=== PATIENT | male | born 1950 | race Caucasian/White ===

== ENCOUNTER 2022-03-24 16:55 | Emergency (ER) | payer OTHER ==
[~2022-03-24] VITALS: Ht 170.2 cm; Wt 82.1 kg
[2022-03-24 18:19] LABS: BASOPHILS % (AUTO) 0.2 % (0.0-5.0); HEMATOCRIT 42.5 % (42-54); LYMPHOCYTES % (AUTO) 10.4 % (21.0-51.0); MEAN CORPUSCULAR HEMOGLOBIN 30.5 pg (27.0-33.0); MEAN CORPUSCULAR HGB CONC 34.1 g/dL (32.0-36.0); MEAN CORPUSCULAR VOLUME 89.3 fL (79-99); MONOCYTES % (AUTO) 11.1 % (3.0-13.0); NEUTROPHILS % (AUTO) 73.7 % (40.0-77.0); PLATELET COUNT (AUTO) 170 K/uL (130-400); RED BLOOD CELL COUNT(AUTO) 4.76 MIL/uL (4.50-6.20); RED CELL DISTRIBUTION WIDTH 12.5 % (11.0-15.5); WHITE BLOOD COUNT (AUTO) 8.2 K/uL (4.8-10.8)
[2022-03-24 18:30] LABS: CREATININE 1.7 mg/dL (0.5-1.5); POTASSIUM 5.5 mmol/L (3.5-5.1)
[2022-03-24] MEDS ORDERED: MORPHINE 2 MG SYG IVP ONE (18:30)
[2022-03-24] MEDS ORDERED: ONDANSETRON 4MG INJ IVP ONE (18:30)
[2022-03-24] MEDS ORDERED: 0.9% NACL 250ML 250 ML IV ONE (18:30)
[2022-03-24 18:31] LABS: INR 0.93 (0.85-1.15); PROTHROMBIN TIME 10.1 SEC (9.6-11.6)
[2022-03-24 18:32] LABS: PARTIAL THROMBOPLASTIN TIME 26.5 SEC (26.3-35.5)
[2022-03-24 18:35] LABS: ALBUMIN 3.9 g/dL (3.5-5.0); TOTAL PROTEIN, SERUM 7.4 g/dL (6.0-8.3)
[2022-03-24] MEDS ORDERED: APIX5TAB PO (19:49)
[2022-03-24 20:07] VITALS: BP 162/82
== END 2022-03-24 20:16 | disposition home or self-care (01) ==
LOC: EDH 16:55
DX: I82.401 Acute embolism and thrombosis of unspecified deep veins of right lower extremity (principal); I25.10 Atherosclerotic heart disease of native coronary artery without angina pectoris; I12.9 Hypertensive chronic kidney disease with stage 1 through stage 4 chronic kidney disease, or unspecified chronic kidney disease; E11.22 Type 2 diabetes mellitus with diabetic chronic kidney disease; N18.9 Chronic kidney disease, unspecified; E78.5 Hyperlipidemia, unspecified; J44.9 Chronic obstructive pulmonary disease, unspecified; Z91.041 Radiographic dye allergy status; Z98.890 Other specified postprocedural states; Z79.01 Long term (current) use of anticoagulants; Z95.810 Presence of automatic (implantable) cardiac defibrillator
CPT/HCPCS: 99284; 96374; 93971; 96375; 80053; 85025; 85610; 85730; 36415; J2405; J7050; 96361

== ENCOUNTER 2022-03-28 14:43 | Emergency (ER) | payer OTHER ==
[~2022-03-28] VITALS: Ht 170.2 cm; Wt 81.6 kg
[~2022-03-28 14:43] MED LIST: APIX5TAB PO
[2022-03-28 14:48] VITALS: BP 189/130
[2022-03-28 16:08] LABS: BASOPHILS % (AUTO) 0.3 % (0.0-5.0); EOSINOPHILS % (AUTO) 3.9 % (0.0-8.0); HEMATOCRIT 37.7 % (42-54); LYMPHOCYTES % (AUTO) 12.9 % (21.0-51.0); MEAN CORPUSCULAR HEMOGLOBIN 31.3 pg (27.0-33.0); MEAN CORPUSCULAR HGB CONC 35.3 g/dL (32.0-36.0); MEAN CORPUSCULAR VOLUME 88.7 fL (79-99); MONOCYTES % (AUTO) 11.4 % (3.0-13.0); NEUTROPHILS % (AUTO) 70.9 % (40.0-77.0); PLATELET COUNT (AUTO) 174 K/uL (130-400); RED BLOOD CELL COUNT(AUTO) 4.25 MIL/uL (4.50-6.20); RED CELL DISTRIBUTION WIDTH 12.6 % (11.0-15.5)
[2022-03-28 16:19] LABS: CREATININE 1.6 mg/dL (0.5-1.5); POTASSIUM 4.9 mmol/L (3.5-5.1)
[2022-03-28 16:31] LABS: ALBUMIN 3.4 g/dL (3.5-5.0); TOTAL PROTEIN, SERUM 6.5 g/dL (6.0-8.3)
== END 2022-03-28 18:36 | disposition home or self-care (01) ==
LOC: EDH 14:43
DX: I82.401 Acute embolism and thrombosis of unspecified deep veins of right lower extremity (principal); I10 Essential (primary) hypertension; E78.00 Pure hypercholesterolemia, unspecified; E11.9 Type 2 diabetes mellitus without complications; Z88.8 Allergy status to other drugs, medicaments and biological substances
CPT/HCPCS: 36415; 71045; 80053; 84484; 85025; 93005; 93971

== ENCOUNTER 2022-06-15 19:15 | Inpatient (IN) | payer OTHER ==
[~2022-06-15] VITALS: Ht 170.2 cm; Wt 82.8 kg
[~2022-06-15 19:15] MED LIST changes: +ALBUHFA IH; +AZIT500T2 PO; +PRED20TA3 PO
[2022-06-15 20:54] LABS: BASOPHILS % (AUTO) 0.1 % (0.0-5.0); EOSINOPHILS % (AUTO) 1.3 % (0.0-8.0); HEMATOCRIT 38.5 % (42-54); MEAN CORPUSCULAR HEMOGLOBIN 30.6 pg (27.0-33.0); MONOCYTES % (AUTO) 10.4 % (3.0-13.0); NEUTROPHILS % (AUTO) 75.8 % (40.0-77.0); PLATELET COUNT (AUTO) 155 K/uL (130-400); RED BLOOD CELL COUNT(AUTO) 4.28 MIL/uL (4.50-6.20); RED CELL DISTRIBUTION WIDTH 12.7 % (11.0-15.5); WHITE BLOOD COUNT (AUTO) 7.2 K/uL (4.8-10.8)
[2022-06-15 21:02] LABS: APPEARANCE,URINE CLEAR (CLEAR); BILIRUBIN,URINE NEGATIVE (NEGATIVE); COLOR,URINE YELLOW (YELLOW); GLUCOSE, URINE (UA) NEGATIVE (NEGATIVE); KETONES,URINE NEGATIVE (NEGATIVE); LEUKOCYTE ESTERASE ,URINE NEGATIVE Leu/uL (NEGATIVE); NITRATE,URINE NEGATIVE (NEGATIVE); OCCULT BLOOD,URINE NEGATIVE (NEGATIVE); PROTEIN,URINE 10 mg/dL (NEGATIVE); UROBILINOGEN,URINE 0.2 mg/dL (0.2-1.0)
[2022-06-15 21:07] LABS: MUCUS,URINE RARE LPF (None Seen); WBC,URINE 0-1 /HPF (0-1)
[2022-06-15 21:07] LABS: CREATININE 2.1 mg/dL (0.5-1.5); POTASSIUM 4.6 mmol/L (3.5-5.1)
[2022-06-15 21:15] LABS: ALBUMIN 3.5 g/dL (3.5-5.0); TOTAL PROTEIN, SERUM 6.5 g/dL (6.0-8.3)
[2022-06-15] MEDS ORDERED: ONDANSETRON 4MG INJ IVP ONE (23:00)
[2022-06-15] MEDS ORDERED: HYDROMORPHONE 1 MG INJ IVP ONE (23:00)
[2022-06-16 04:28] VITALS: BP 177/94
[2022-06-16] MEDS ORDERED: MORPHINE 2 MG SYG IV PRN ×2 (07:00)
[2022-06-16] MEDS ORDERED: ACETAMINOPHEN 325 MG TAB PO PRN ×4 (07:00)
[2022-06-16] MEDS ORDERED: ONDANSETRON 4MG INJ IV PRN ×2 (07:00)
[2022-06-16] MEDS: 0.9%NACL 1000ML 1,000 ML IV SCH (07:00)
[2022-06-16] MEDS ORDERED: HYDROCODONE/ACETAMINOPHEN 5/325 MG TAB PO PRN ×2 (07:00)
[2022-06-16 07:12] LABS: BASOPHILS % (AUTO) 0.2 % (0.0-5.0); EOSINOPHILS % (AUTO) 1.8 % (0.0-8.0); HEMATOCRIT 38.3 % (42-54); LYMPHOCYTES % (AUTO) 12.1 % (21.0-51.0); MEAN CORPUSCULAR HEMOGLOBIN 30.2 pg (27.0-33.0); MEAN CORPUSCULAR HGB CONC 32.9 g/dL (32.0-36.0); MEAN CORPUSCULAR VOLUME 91.8 fL (79-99); MONOCYTES % (AUTO) 11.6 % (3.0-13.0); NEUTROPHILS % (AUTO) 73.8 % (40.0-77.0); PLATELET COUNT (AUTO) 140 K/uL (130-400); RED BLOOD CELL COUNT(AUTO) 4.17 MIL/uL (4.50-6.20); RED CELL DISTRIBUTION WIDTH 12.6 % (11.0-15.5); WHITE BLOOD COUNT (AUTO) 6.3 K/uL (4.8-10.8)
[2022-06-16 07:22] LABS: INR 0.98 (0.85-1.15); PROTHROMBIN TIME 10.7 SEC (9.6-11.6)
[2022-06-16 07:23] LABS: PARTIAL THROMBOPLASTIN TIME 28.6 SEC (26.3-35.5)
[2022-06-16 07:29] LABS: HEMOGLOBIN A1C 7.2 % (4.0-6.0)
[2022-06-16 07:47] LABS: ALBUMIN 3.1 g/dL (3.5-5.0); CREATININE 1.8 mg/dL (0.5-1.5); POTASSIUM 4.9 mmol/L (3.5-5.1)
[2022-06-16] MEDS ORDERED: MYCO500V2 IV (07:57)
[2022-06-16] MEDS ORDERED: TACR1CAP10 PO (07:58)
[2022-06-16 08:00] VITALS: BP 128/85
[2022-06-16] MEDS ORDERED: ACYC400T20 PO (08:00)
[2022-06-16] MEDS ORDERED: MAGN400T40 PO (08:02)
[2022-06-16 08:21] LABS: ERYTHROCYTE SEDIMENTATION RATE 13 MM/HR (0-20)
[2022-06-16] MEDS: FAMOTIDINE 20MG VIAL IV SCH (08:37)
[2022-06-16] MEDS ORDERED: CARV25TA PO (08:41)
[2022-06-16] MEDS ORDERED: TAMS-1 PO (08:41)
[2022-06-16] MEDS ORDERED: OMEP40CA21 PO (08:41)
[2022-06-16] MEDS ORDERED: CALC200T42 PO (08:41)
[2022-06-16] MEDS ORDERED: CHOL-34 PO (08:41)
[2022-06-16] MEDS ORDERED: ASPI-1005 PO (08:41)
[2022-06-16] MEDS ORDERED: ATOR40TA69 PO (08:43)
[2022-06-16] MEDS ORDERED: SILD20TA14 PO (08:47)
[2022-06-16] MEDS ORDERED: FAMOTIDINE 20MG VIAL IV SCH (09:00)
[2022-06-16 11:23] VITALS: BP 141/90
[2022-06-16] MEDS: INSULIN HUMULIN R 100 UNIT/ML 3ML SQ SCH ×3 (12:00→23:39)
[2022-06-16 15:26] VITALS: BP 155/91
[2022-06-16] MEDS: HYDROMORPHONE 1 MG INJ IV PRN (19:03)
[2022-06-16 20:02] VITALS: BP 166/97
[2022-06-16 23:40] VITALS: BP 146/91
[2022-06-17] MEDS: 0.9%NACL 1000ML 1,000 ML IV SCH ×2 (02:53→23:00)
[2022-06-17 04:16] VITALS: BP 149/98
[2022-06-17] MEDS: INSULIN HUMULIN R 100 UNIT/ML 3ML SQ SCH ×3 (05:29→18:08)
[2022-06-17 06:18] LABS: BASOPHILS % (AUTO) 0.2 % (0.0-5.0); EOSINOPHILS % (AUTO) 1.6 % (0.0-8.0); HEMATOCRIT 39.1 % (42-54); LYMPHOCYTES % (AUTO) 8.9 % (21.0-51.0); MEAN CORPUSCULAR HEMOGLOBIN 30.4 pg (27.0-33.0); MONOCYTES % (AUTO) 10.8 % (3.0-13.0); PLATELET COUNT (AUTO) 141 K/uL (130-400); RED BLOOD CELL COUNT(AUTO) 4.25 MIL/uL (4.50-6.20); RED CELL DISTRIBUTION WIDTH 12.6 % (11.0-15.5); WHITE BLOOD COUNT (AUTO) 8.2 K/uL (4.8-10.8)
[2022-06-17 06:44] LABS: ALBUMIN 3.1 g/dL (3.5-5.0); CREATININE 1.5 mg/dL (0.5-1.5); POTASSIUM 4.4 mmol/L (3.5-5.1)
[2022-06-17] MEDS: HYDROMORPHONE 1 MG INJ IV PRN ×3 (06:53→20:59)
[2022-06-17 07:53] VITALS: BP 158/89
[2022-06-17] MEDS: ATORVASTATIN 40 MG TABLET PO SCH (09:00)
[2022-06-17] MEDS: TAMSULOSIN HCL 0.4 MG CAP.ER.24H PO SCH (09:00)
[2022-06-17] MEDS: MAGNESIUM OXIDE 400 MG TABLET PO SCH ×2 (09:00→21:00)
[2022-06-17] MEDS: CALCIUM CITRATE 200 MG PO SCH ×2 (09:00→21:00)
[2022-06-17] MEDS: CHOLECALCIFEROL 25 MCG PO SCH (09:00)
[2022-06-17] MEDS: ACYCLOVIR 200 MG CAPSULE PO SCH ×2 (09:00→21:00)
[2022-06-17] MEDS: MYCOPHENOLATE MOFETIL 250 MG CAPSULE PO SCH ×2 (09:08→20:57)
[2022-06-17] MEDS: FAMOTIDINE 20MG VIAL IV SCH (09:08)
[2022-06-17] MEDS: TACROLIMUS 1 MG CAPSULE PO SCH ×2 (09:08→20:57)
[2022-06-17] MEDS: CARVEDILOL 25 MG TABLET PO SCH ×2 (09:09→20:56)
[2022-06-17] MEDS ORDERED: LACTULOSE 20 GM/30 ML UDCUP PO ONE (11:00)
[2022-06-17] MEDS: ZOSYN 3.375GM +NS 50ML IVPB SCH ×2 (11:58→18:09)
[2022-06-17 12:00] VITALS: BP 154/95
[2022-06-17 15:57] VITALS: BP 127/78
[2022-06-17 19:00] VITALS: BP 163/93
[2022-06-18] VITALS (22 sets, daily range): BP systolic 127–166; BP diastolic 70–97
[2022-06-18] MEDS: HYDROMORPHONE 1 MG INJ IV PRN ×4 (01:26→20:33)
[2022-06-18] MEDS: ZOSYN 3.375GM +NS 50ML IVPB SCH ×3 (03:19→17:51)
[2022-06-18] MEDS: INSULIN HUMULIN R 100 UNIT/ML 3ML SQ SCH ×4 (06:00→17:41)
[2022-06-18 06:29] LABS: HEMATOCRIT 41.6 % (42-54); MEAN CORPUSCULAR HEMOGLOBIN 30.6 pg (27.0-33.0); MEAN CORPUSCULAR HGB CONC 33.7 g/dL (32.0-36.0); MEAN CORPUSCULAR VOLUME 90.8 fL (79-99); RED BLOOD CELL COUNT(AUTO) 4.58 MIL/uL (4.50-6.20); RED CELL DISTRIBUTION WIDTH 12.4 % (11.0-15.5); WHITE BLOOD COUNT (AUTO) 7.4 K/uL (4.8-10.8)
[2022-06-18 06:41] LABS: ALBUMIN 3.4 g/dL (3.5-5.0); CREATININE 1.6 mg/dL (0.5-1.5); POTASSIUM 3.7 mmol/L (3.5-5.1); TOTAL PROTEIN, SERUM 6.9 g/dL (6.0-8.3)
[2022-06-18] MEDS: CARVEDILOL 25 MG TABLET PO SCH ×2 (08:20→20:31)
[2022-06-18] MEDS: TACROLIMUS 1 MG CAPSULE PO SCH ×2 (08:20→20:30)
[2022-06-18] MEDS: ACYCLOVIR 200 MG CAPSULE PO SCH ×2 (08:20→20:30)
[2022-06-18] MEDS: MYCOPHENOLATE MOFETIL 250 MG CAPSULE PO SCH ×2 (08:20→20:30)
[2022-06-18] MEDS: CALCIUM CITRATE 200 MG PO SCH ×2 (09:00→20:40)
[2022-06-18] MEDS: TAMSULOSIN HCL 0.4 MG CAP.ER.24H PO SCH (09:00)
[2022-06-18] MEDS: CHOLECALCIFEROL 25 MCG PO SCH (09:00)
[2022-06-18] MEDS: ATORVASTATIN 40 MG TABLET PO SCH (09:00)
[2022-06-18] MEDS: MAGNESIUM OXIDE 400 MG TABLET PO SCH ×2 (09:00→20:30)
[2022-06-18] MEDS: FAMOTIDINE 20MG VIAL IV SCH (09:00)
[2022-06-18] MEDS ORDERED: PROPOFOL 10 MG/ML 20ML VIAL IV ONE (09:29)
[2022-06-18] MEDS ORDERED: LIDOCAINE PF 100MG/5ML (2%) SYRINGE 5ML ONE (09:29)
[2022-06-18] MEDS ORDERED: DEXAMETHASONE SOD PHOSPHATE 4 MG/ML 1ML VIAL ONE (09:29)
[2022-06-18] MEDS ORDERED: NEOSTIGMINE 5MG/5ML SYR IV ONE (09:30)
[2022-06-18] MEDS ORDERED: ROCURONIUM 10MG/1ML SYR 10 MG/ML ML ONE ×2 (09:30→10:48)
[2022-06-18] MEDS ORDERED: GLYCOPYRROLATE 1 MG/5 ML SYRINGE ONE (09:30)
[2022-06-18] MEDS ORDERED: ONDANSETRON 4MG INJ ONE (09:30)
[2022-06-18] MEDS ORDERED: MIDAZOLAM HCL 1 MG/ML 2ML VIAL ONE (09:30)
[2022-06-18] MEDS ORDERED: FENTANYL CITRATE PF 50 MCG/1 ML 2ML VIAL ONE ×2 (09:31→10:48)
[2022-06-18] MEDS ORDERED: CEFAZOLIN SODIUM 1 GM VIAL ONE (10:00)
[2022-06-18] MEDS: ALBUTEROL INHALER 90MCG/INH IH SCH ×7 (11:30→23:19)
[2022-06-18] MEDS ORDERED: MEPERIDINE-PF 25 MG/ML SYG ONE (12:42)
[2022-06-18] MEDS ORDERED: ACETAMINOPHEN WITH CODEINE 1 TAB TAB PO PRN (15:00)
[2022-06-18] MEDS: 0.9%NACL 1000ML 1,000 ML IV SCH (17:52)
[2022-06-19] VITALS: BP 145/90
[2022-06-19] MEDS: INSULIN HUMULIN R 100 UNIT/ML 3ML SQ SCH ×4 (00:43→16:56)
[2022-06-19] MEDS: HYDROMORPHONE 1 MG INJ IV PRN ×2 (01:38→07:27)
[2022-06-19] MEDS: ZOSYN 3.375GM +NS 50ML IVPB SCH ×3 (02:57→19:29)
[2022-06-19] MEDS: ALBUTEROL INHALER 90MCG/INH IH SCH ×6 (03:30→19:30)
[2022-06-19 04:00] VITALS: BP 125/65
[2022-06-19 05:56] LABS: BASOPHILS % (AUTO) 0.1 % (0.0-5.0); HEMATOCRIT 36.7 % (42-54); LYMPHOCYTES % (AUTO) 3.2 % (21.0-51.0); MEAN CORPUSCULAR HEMOGLOBIN 30.8 pg (27.0-33.0); MEAN CORPUSCULAR HGB CONC 34.1 g/dL (32.0-36.0); MEAN CORPUSCULAR VOLUME 90.4 fL (79-99); MONOCYTES % (AUTO) 6.5 % (3.0-13.0); NEUTROPHILS % (AUTO) 89.4 % (40.0-77.0); PLATELET COUNT (AUTO) 156 K/uL (130-400); RED BLOOD CELL COUNT(AUTO) 4.06 MIL/uL (4.50-6.20); RED CELL DISTRIBUTION WIDTH 12.3 % (11.0-15.5); WHITE BLOOD COUNT (AUTO) 13.3 K/uL (4.8-10.8)
[2022-06-19 06:06] LABS: ALBUMIN 2.9 g/dL (3.5-5.0); CREATININE 1.8 mg/dL (0.5-1.5); POTASSIUM 4.6 mmol/L (3.5-5.1); TOTAL PROTEIN, SERUM 5.9 g/dL (6.0-8.3)
[2022-06-19 07:30] VITALS: BP 94/57
[2022-06-19] MEDS: TACROLIMUS 1 MG CAPSULE PO SCH ×3 (08:45→20:31)
[2022-06-19] MEDS: ACYCLOVIR 200 MG CAPSULE PO SCH ×3 (08:45→20:27)
[2022-06-19] MEDS: CARVEDILOL 25 MG TABLET PO SCH ×3 (08:46→20:32)
[2022-06-19] MEDS: MYCOPHENOLATE MOFETIL 250 MG CAPSULE PO SCH ×3 (08:46→20:32)
[2022-06-19] MEDS: MAGNESIUM OXIDE 400 MG TABLET PO SCH ×2 (08:49→20:26)
[2022-06-19] MEDS: TAMSULOSIN HCL 0.4 MG CAP.ER.24H PO SCH (08:50)
[2022-06-19] MEDS: FAMOTIDINE 20MG VIAL IV SCH (08:51)
[2022-06-19] MEDS: CHOLECALCIFEROL 25 MCG PO SCH (08:53)
[2022-06-19] MEDS: CALCIUM CITRATE 200 MG PO SCH ×2 (08:53→20:32)
[2022-06-19] MEDS: ATORVASTATIN 40 MG TABLET PO SCH (08:53)
[2022-06-19 11:00] VITALS: BP 124/69
[2022-06-19] MEDS ORDERED: HYDROMORPHONE 0.5 MG SYG (0.5MG/0.5ML) IV PRN (11:30)
[2022-06-19] MEDS: HYDROMORPHONE 1 MG INJ IVP PRN ×2 (13:34→20:38)
[2022-06-19] MEDS ORDERED: ARTIFICIAL TEARS 3.5 GM OINTMENT OD ONE (14:30)
[2022-06-19] MEDS: 0.9%NACL 1000ML 1,000 ML IV SCH (15:00)
[2022-06-19 16:00] VITALS: BP 115/71
[2022-06-19 20:15] VITALS: BP 119/68
[2022-06-19] MEDS ORDERED: ARTIFICIAL TEARS 3.5 GM OINTMENT OD SCH (21:00)
[2022-06-20 00:09] VITALS: BP 144/87
[2022-06-20] MEDS: ZOSYN 3.375GM +NS 50ML IVPB SCH ×2 (03:26→11:20)
[2022-06-20] MEDS: 0.9%NACL 1000ML 1,000 ML IV SCH (03:26)
[2022-06-20 03:54] VITALS: BP 158/89
[2022-06-20] MEDS: HYDROMORPHONE 1 MG INJ IVP PRN (04:22)
[2022-06-20] MEDS: INSULIN HUMULIN R 100 UNIT/ML 3ML SQ SCH ×2 (05:32)
[2022-06-20 05:52] LABS: BASOPHILS % (AUTO) 0.1 % (0.0-5.0); EOSINOPHILS % (AUTO) 0.2 % (0.0-8.0); HEMATOCRIT 37.2 % (42-54); LYMPHOCYTES % (AUTO) 5.4 % (21.0-51.0); MEAN CORPUSCULAR HEMOGLOBIN 31.3 pg (27.0-33.0); MEAN CORPUSCULAR HGB CONC 33.9 g/dL (32.0-36.0); MEAN CORPUSCULAR VOLUME 92.5 fL (79-99); MONOCYTES % (AUTO) 10.7 % (3.0-13.0); NEUTROPHILS % (AUTO) 83.2 % (40.0-77.0); PLATELET COUNT (AUTO) 152 K/uL (130-400); RED BLOOD CELL COUNT(AUTO) 4.02 MIL/uL (4.50-6.20); RED CELL DISTRIBUTION WIDTH 12.9 % (11.0-15.5)
[2022-06-20 06:09] LABS: ALBUMIN 3.2 g/dL (3.5-5.0); CREATININE 1.9 mg/dL (0.5-1.5); POTASSIUM 4.6 mmol/L (3.5-5.1); TOTAL PROTEIN, SERUM 6.5 g/dL (6.0-8.3)
[2022-06-20 08:00] VITALS: BP 147/67
[2022-06-20] MEDS: ACYCLOVIR 200 MG CAPSULE PO SCH (08:34)
[2022-06-20] MEDS: TAMSULOSIN HCL 0.4 MG CAP.ER.24H PO SCH (08:34)
[2022-06-20] MEDS: MAGNESIUM OXIDE 400 MG TABLET PO SCH (08:34)
[2022-06-20] MEDS: FAMOTIDINE 20MG VIAL IV SCH (08:35)
[2022-06-20] MEDS: CALCIUM CITRATE 200 MG PO SCH (08:36)
[2022-06-20] MEDS: CARVEDILOL 25 MG TABLET PO SCH (08:36)
[2022-06-20] MEDS: CHOLECALCIFEROL 25 MCG PO SCH (08:36)
[2022-06-20] MEDS: ATORVASTATIN 40 MG TABLET PO SCH (08:37)
[2022-06-20] MEDS: TACROLIMUS 1 MG CAPSULE PO SCH (08:37)
[2022-06-20] MEDS: MYCOPHENOLATE MOFETIL 250 MG CAPSULE PO SCH (08:37)
[2022-06-20] MEDS ORDERED: APIXABAN 5 MG TABLET PO SCH (09:00)
[2022-06-20 12:00] VITALS: BP 160/86
[2022-06-20] MEDS ORDERED: BISACODYL 5 MG TABLET.DR PO SCH (21:00)
== END 2022-06-20 13:00 | disposition home or self-care (01) | DRG 351 ==
LOC: EDH 19:15 → EDHIP 06-16 01:45 → 3AH 06-16 04:04
PROVIDERS: ADMIT Hospitalist; ATTEND Hospitalist
PROC: 0YUA0JZ Supplement Bilateral Inguinal Region with Synthetic Substitute, Open Approach (ICD-10-PCS; principal; 2022-06-18 09:00)
DX: K40.20 Bilateral inguinal hernia, without obstruction or gangrene, not specified as recurrent (principal); N17.9 Acute kidney failure, unspecified; Z94.1 Heart transplant status; Z20.822 Contact with and (suspected) exposure to COVID-19; K80.20 Calculus of gallbladder without cholecystitis without obstruction; E11.65 Type 2 diabetes mellitus with hyperglycemia; I10 Essential (primary) hypertension; E78.00 Pure hypercholesterolemia, unspecified; Z91.041 Radiographic dye allergy status; Z95.1 Presence of aortocoronary bypass graft
CPT/HCPCS: 36415; 74176; 80053; 81001; 82948; 83036; 84145; 84484; 85025; 85027; 85610; 85651; 85730; 86850; 86900; 86901; 87635; 93005; 93306; 93356; G0378; J0690; J1100; J1170; J1815; J2001; J2175; J2250; J2405; J2543; J2704; J2710; J3010; J3490; J7507; J7517

== ENCOUNTER → 2023-04-01 | Outpatient (CLI) | payer OTHER ==
[~2023-04-01] MED LIST changes: +ACYC400T20 PO; +ASPI-1005 PO; +ATOR40TA69 PO; -AZIT500T2 PO; +CALC200T16 PO; +CARV25TA PO; +CHOL-34 PO; +MAGN400T40 PO; +MYCO500V2 IV; +OMEP40CA21 PO; -PRED20TA3 PO; +SILD20TA14 PO; +TACR1CAP10 PO; +TAMS-1 PO
== END | disposition home or self-care (01) ==
LOC: SHCH 10:17
PROVIDERS: ATTEND Student in an Organized Health Care Education/Training Program
DX: I70.203 Unspecified atherosclerosis of native arteries of extremities, bilateral legs (principal); E11.9 Type 2 diabetes mellitus without complications; E78.5 Hyperlipidemia, unspecified; Z94.1 Heart transplant status
CPT/HCPCS: 93306; 93925

== ENCOUNTER 2023-07-26 08:41 | Emergency (ER) | payer OTHER ==
[~2023-07-26] VITALS: Ht 170.2 cm; Wt 68.5 kg
[2023-07-26] MEDS: CEFTRIAXONE 1G VIAL IM ONE (09:15)
[2023-07-26 09:42] LABS: APPEARANCE,URINE CLEAR (CLEAR); BILIRUBIN,URINE NEGATIVE (NEGATIVE); COLOR,URINE LIGHT-YELLOW (YELLOW); GLUCOSE, URINE (UA) >=1000 mg/dL (NEGATIVE); KETONES,URINE NEGATIVE (NEGATIVE); LEUKOCYTE ESTERASE ,URINE NEGATIVE Leu/uL (NEGATIVE); NITRATE,URINE NEGATIVE (NEGATIVE); OCCULT BLOOD,URINE NEGATIVE (NEGATIVE); PH,URINE 5.5 (5.0-8.0); PROTEIN,URINE NEGATIVE (NEGATIVE); RBC,URINE 0-1 /HPF (0-1); UROBILINOGEN,URINE 0.2 mg/dL (0.2-1.0); WBC,URINE 0-1 /HPF (0-1)
[2023-07-26] MEDS ORDERED: DOXY100T2 PO (10:40)
[2023-07-26 11:02] VITALS: BP 136/74; PULSE 72; RESP 20; O2SAT 97
== END 2023-07-26 11:03 | disposition home or self-care (01) ==
LOC: EDH 08:41
DX: Z20.2 Contact with and (suspected) exposure to infections with a predominantly sexual mode of transmission (principal); I10 Essential (primary) hypertension; E11.9 Type 2 diabetes mellitus without complications; E78.00 Pure hypercholesterolemia, unspecified; Z79.82 Long term (current) use of aspirin; Z79.899 Other long term (current) drug therapy; Z98.890 Other specified postprocedural states; Z88.5 Allergy status to narcotic agent; Z88.8 Allergy status to other drugs, medicaments and biological substances
CPT/HCPCS: 99284; 87797; 87486; 81001; 96372; J0696

== ENCOUNTER → 2023-08-27 | Outpatient (CLI) | payer OTHER ==
[~2023-08-27] MED LIST changes: +DOXY100T2 PO
== END | disposition home or self-care (01) ==
LOC: SHCH 14:08
PROVIDERS: ATTEND Student in an Organized Health Care Education/Training Program
DX: I82.431 Acute embolism and thrombosis of right popliteal vein (principal); I87.2 Venous insufficiency (chronic) (peripheral); I73.9 Peripheral vascular disease, unspecified
CPT/HCPCS: 93970

== ENCOUNTER 2023-11-10 05:52 | Day surgery (SDC) | payer OTHER ==
[2023-11-06 13:55] LABS: BASOPHILS # (AUTO) 0.01 K/uL (0.00-0.20); BASOPHILS % (AUTO) 0.1 % (0.0-5.0); EOSINOPHILS # (AUTO) 0.13 K/uL (0.00-0.70); EOSINOPHILS % (AUTO) 1.7 % (0.0-8.0); HEMATOCRIT 42.2 % (42-54); IMMATURE GRANULOCYTE ABSOLUTE 0.03 K/uL (0-1); LYMPHOCYTES # (AUTO) 0.6 K/uL (1.0-4.8); LYMPHOCYTES % (AUTO) 7.9 % (21.0-51.0); MEAN CORPUSCULAR HEMOGLOBIN 33.8 pg (27.0-33.0); MEAN CORPUSCULAR HGB CONC 33.9 g/dL (32.0-36.0); MEAN CORPUSCULAR VOLUME 99.8 fL (79-99); MONOCYTES # (AUTO) 0.8 K/uL (0.1-1.0); MONOCYTES % (AUTO) 9.8 % (3.0-13.0); NEUTROPHILS # (AUTO) 6.2 K/uL (1.8-7.7); NEUTROPHILS % (AUTO) 80.1 % (40.0-77.0); PLATELET COUNT (AUTO) 135 K/uL (130-400); RED BLOOD CELL COUNT(AUTO) 4.23 MIL/uL (4.50-6.20); WHITE BLOOD COUNT (AUTO) 7.8 K/uL (4.8-10.8)
[2023-11-06 14:05] LABS: CREATININE 1.3 mg/dL (0.5-1.3); INR 0.95 (0.85-1.15); POTASSIUM 4.6 mmol/L (3.5-5.1); PROTHROMBIN TIME 10.3 SEC (9.6-11.6)
[2023-11-06 14:07] LABS: PARTIAL THROMBOPLASTIN TIME 27.9 SEC (26.3-35.5)
[2023-11-06 14:15] VITALS: BP 140/83; PULSE 77; RESP 19
[2023-11-10] VITALS (10 sets, daily range): BP systolic 108–163; BP diastolic 66–100; PULSE 72–91; RESP 16–18
[~2023-11-10] VITALS: Ht 170.2 cm; Wt 72.8 kg
[~2023-11-10 05:52] MED LIST changes: -ACYC400T20 PO; -ALBUHFA IH; +ATOR-2 PO; -ATOR40TA69 PO; +CALC-1038 PO; -CALC200T16 PO; -CHOL-34 PO; +CILO100T3 PO; -DOXY100T2 PO; +EMPA25TA PO; +GABA600T10 PO; +LORA10TA7 PO; +MYCO500T5 PO; -MYCO500V2 IV; +OMEP20TA20 PO; -OMEP40CA21 PO; -SILD20TA14 PO
[2023-11-10] MEDS: 0.9%NACL 1000ML 1,000 ML IV SCH ×2 (07:14→10:30)
[2023-11-10] MEDS ORDERED: LIDOCAINE HCL 400MG/20ML VIAL ONE (07:15)
[2023-11-10] MEDS ORDERED: FENTanyl CITRate PF 50 MCG/1 ML 2ML VIAL ONE (07:16)
[2023-11-10] MEDS ORDERED: HEParin 10,000 UNIT/10ML (1,000 UNIT/ML) VIAL ONE (07:17)
[2023-11-10] MEDS ORDERED: IODIXANOL 320 MG/ML 100 ML VIAL ONE (07:17)
[2023-11-10] MEDS ORDERED: NITROGLYCERIN 50MG VIAL ONE (07:17)
[2023-11-10] MEDS ORDERED: HEParin-NS 1,000 UNIT/500 ML 1,000 ML IV ONE (07:17)
[2023-11-10] MEDS ORDERED: MIDAZOLAM HCL 1 MG/ML 2ML VIAL ONE (07:17)
[2023-11-10] MEDS ORDERED: Solu-medROL 125MG VIAL ONE (07:31)
[2023-11-10] MEDS ORDERED: DiphenhydrAMINE HCL 50 MG/ML VIAL ONE (07:31)
[2023-11-10] MEDS ORDERED: niCARDIpine 25MG INJ IV ONE (08:07)
[2023-11-10] MEDS ORDERED: HEParin-NS 1,000 UNIT/500 ML 500 ML IV ONE (08:08)
[2023-11-10] MEDS ORDERED: hydrALAZine 20MG/ML VIAL ONE (08:36)
[2023-11-10] MEDS ORDERED: CLOPIDOGREL 300MG TAB ONE (08:52)
[2023-11-10] MEDS ORDERED: GLUCAGON 1MG KIT 1 MG ML IM PRN (10:30)
[2023-11-10] MEDS ORDERED: DEXTROSE 50%-WATER 50 ML DISP.SYRIN IV PRN (10:30)
== END 2023-11-10 14:00 | disposition home or self-care (01) ==
LOC: DAH 05:52
PROVIDERS: ATTEND Internal Medicine Cardiovascular Disease
DX: E11.51 Type 2 diabetes mellitus with diabetic peripheral angiopathy without gangrene (principal); I70.203 Unspecified atherosclerosis of native arteries of extremities, bilateral legs; I83.893 Varicose veins of bilateral lower extremities with other complications; I82.401 Acute embolism and thrombosis of unspecified deep veins of right lower extremity; I12.9 Hypertensive chronic kidney disease with stage 1 through stage 4 chronic kidney disease, or unspecified chronic kidney disease; E11.22 Type 2 diabetes mellitus with diabetic chronic kidney disease; N18.30 Chronic kidney disease, stage 3 unspecified; E78.5 Hyperlipidemia, unspecified; I25.10 Atherosclerotic heart disease of native coronary artery without angina pectoris; J44.9 Chronic obstructive pulmonary disease, unspecified; M19.90 Unspecified osteoarthritis, unspecified site; E78.01 Familial hypercholesterolemia; Z95.5 Presence of coronary angioplasty implant and graft; Z85.828 Personal history of other malignant neoplasm of skin; Z94.1 Heart transplant status; Z88.8 Allergy status to other drugs, medicaments and biological substances; Z79.01 Long term (current) use of anticoagulants; Z79.82 Long term (current) use of aspirin; Z79.899 Other long term (current) drug therapy
CPT/HCPCS: 80048; 85025; 85610; 85730; 36415 ×2; 75630; 37252; 37253; 85347; 82948; C9764; C1887; C1894 ×4; C1760; C1769 ×2; C1753; C1725; J1200; J3010; J3490 ×3; J7030; J2919; J0360; J1644 ×3; J2250; Q9967; A4215; A4222; A4221; A4663; A4216; A4606; A4223 ×3; 75716; 96360; 96361; 99156; 99157

== ENCOUNTER → 2023-12-22 | Outpatient (CLI) | payer OTHER ==
[~2023-12-22] VITALS: Ht 170.2 cm; Wt 71.7 kg
[~2023-12-22] MED LIST changes: +0.9% NACL 500ML IV.SOLN 500 ML IV SCH; -ASPI-1005 PO; +DiphenhydrAMINE HCL 50 MG/ML VIAL IVP SCH; +GABA-1405 PO; -GABA600T10 PO; +Solu-medROL 125MG VIAL IVP SCH
[2023-12-22 12:19] LABS: BASOPHILS % (AUTO) 0.8 % (0.0-5.0); EOSINOPHILS # (AUTO) 0.07 K/uL (0.00-0.70); EOSINOPHILS % (AUTO) 0.6 % (0.0-8.0); HEMATOCRIT 41.9 % (42-54); LYMPHOCYTES # (AUTO) 0.8 K/uL (1.0-4.8); MEAN CORPUSCULAR HEMOGLOBIN 34.3 pg (27.0-33.0); MEAN CORPUSCULAR HGB CONC 33.7 g/dL (32.0-36.0); MEAN CORPUSCULAR VOLUME 101.9 fL (79-99); MONOCYTES # (AUTO) 0.8 K/uL (0.1-1.0); MONOCYTES % (AUTO) 6.6 % (3.0-13.0); NEUTROPHILS # (AUTO) 10.2 K/uL (1.8-7.7); NEUTROPHILS % (AUTO) 81.2 % (40.0-77.0); PLATELET COUNT (AUTO) 206 K/uL (130-400); RED BLOOD CELL COUNT(AUTO) 4.11 MIL/uL (4.50-6.20); RED CELL DISTRIBUTION WIDTH 12.6 % (11.0-15.5); WHITE BLOOD COUNT (AUTO) 12.5 K/uL (4.8-10.8)
[2023-12-22 12:34] LABS: INR 0.97 (0.85-1.15); PROTHROMBIN TIME 10.5 SEC (9.6-11.6)
[2023-12-22 12:35] VITALS: BP 186/106; PULSE 94; RESP 18; TEMP 98.1
[2023-12-22 12:36] LABS: PARTIAL THROMBOPLASTIN TIME 27.2 SEC (26.3-35.5)
[2023-12-22 12:39] LABS: B-TYPE NATRIURETIC PEPTIDE 55 pg/mL (0-100)
[2023-12-22 12:51] LABS: CREATININE 1.3 mg/dL (0.5-1.3)
== END | disposition home or self-care (01) ==
LOC: EDSTATUS 09:00 → DAH 10:00
PROVIDERS: ATTEND Internal Medicine Cardiovascular Disease
DX: Z01.811 Encounter for preprocedural respiratory examination (principal); I51.7 Cardiomegaly; I21.9 Acute myocardial infarction, unspecified; M47.815 Spondylosis without myelopathy or radiculopathy, thoracolumbar region; I73.9 Peripheral vascular disease, unspecified; Z98.890 Other specified postprocedural states
CPT/HCPCS: 36415; 71045; 80048; 83880; 85025; 85610; 85730; 93005

== ENCOUNTER → 2023-12-25 | Outpatient (CLI) | payer OTHER ==
[~2023-12-25] MED LIST changes: -0.9% NACL 500ML IV.SOLN 500 ML IV SCH; -DiphenhydrAMINE HCL 50 MG/ML VIAL IVP SCH; -Solu-medROL 125MG VIAL IVP SCH
[2023-12-25 12:39] LABS: BASOPHILS # (AUTO) 0.04 K/uL (0.00-0.20); BASOPHILS % (AUTO) 0.3 % (0.0-5.0); EOSINOPHILS # (AUTO) 0.13 K/uL (0.00-0.70); HEMATOCRIT 40.1 % (42-54); IMMATURE GRANULOCYTE ABSOLUTE 0.26 K/uL (0-1); LYMPHOCYTES # (AUTO) 0.6 K/uL (1.0-4.8); LYMPHOCYTES % (AUTO) 4.6 % (21.0-51.0); MEAN CORPUSCULAR HEMOGLOBIN 33.8 pg (27.0-33.0); MEAN CORPUSCULAR HGB CONC 33.9 g/dL (32.0-36.0); MEAN CORPUSCULAR VOLUME 99.8 fL (79-99); MONOCYTES # (AUTO) 1.1 K/uL (0.1-1.0); MONOCYTES % (AUTO) 8.8 % (3.0-13.0); NEUTROPHILS # (AUTO) 10.7 K/uL (1.8-7.7); NEUTROPHILS % (AUTO) 83.3 % (40.0-77.0); PLATELET COUNT (AUTO) 189 K/uL (130-400); RED BLOOD CELL COUNT(AUTO) 4.02 MIL/uL (4.50-6.20); RED CELL DISTRIBUTION WIDTH 12.6 % (11.0-15.5); WHITE BLOOD COUNT (AUTO) 12.8 K/uL (4.8-10.8)
[2023-12-25 12:57] LABS: ADD UA MICROSCOPIC YES; APPEARANCE,URINE CLEAR (CLEAR); BILIRUBIN,URINE NEGATIVE (NEGATIVE); COLOR,URINE LIGHT-YELLOW (YELLOW); GLUCOSE, URINE (UA) >=1000 mg/dL (NEGATIVE); KETONES,URINE NEGATIVE (NEGATIVE); LEUKOCYTE ESTERASE ,URINE NEGATIVE Leu/uL (NEGATIVE); NITRATE,URINE NEGATIVE (NEGATIVE); OCCULT BLOOD,URINE NEGATIVE (NEGATIVE); PH,URINE 5.5 (5.0-8.0); PROTEIN,URINE NEGATIVE (NEGATIVE); UROBILINOGEN,URINE 0.2 mg/dL (0.2-1.0)
[2023-12-25 13:14] LABS: SQUAMOUS EPITHELIAL CELL,UR RARE /HPF (0-2); WBC,URINE 0-1 /HPF (0-1)
== END | disposition home or self-care (01) ==
LOC: LAB 11:46
PROVIDERS: ATTEND Student in an Organized Health Care Education/Training Program
DX: R06.02 Shortness of breath (principal); M47.815 Spondylosis without myelopathy or radiculopathy, thoracolumbar region
CPT/HCPCS: 36415; 71046; 81001; 82043; 82570; 85025; 87071; 87205

== ENCOUNTER 2024-01-08 08:51 | Observation (INO) | payer OTHER ==
[2024-01-06 14:28] LABS: APPEARANCE,URINE CLEAR (CLEAR); BILIRUBIN,URINE NEGATIVE (NEGATIVE); COLOR,URINE LIGHT-YELLOW (YELLOW); GLUCOSE, URINE (UA) >=1000 mg/dL (NEGATIVE); KETONES,URINE NEGATIVE (NEGATIVE); LEUKOCYTE ESTERASE ,URINE NEGATIVE Leu/uL (NEGATIVE); NITRATE,URINE NEGATIVE (NEGATIVE); OCCULT BLOOD,URINE NEGATIVE (NEGATIVE); PH,URINE 6.5 (5.0-8.0); PROTEIN,URINE NEGATIVE (NEGATIVE); UROBILINOGEN,URINE 0.2 mg/dL (0.2-1.0)
[2024-01-06 14:31] LABS: ADD UA MICROSCOPIC YES
[2024-01-06 14:32] LABS: CREATININE 1.3 mg/dL (0.5-1.3); POTASSIUM 4.1 mmol/L (3.5-5.1)
[2024-01-06 14:33] LABS: INR 1.03 (0.85-1.15); PROTHROMBIN TIME 11.1 SEC (9.6-11.6)
[2024-01-06 14:34] LABS: PARTIAL THROMBOPLASTIN TIME 31.2 SEC (26.3-35.5)
[2024-01-06 14:35] LABS: MUCUS,URINE RARE LPF (None Seen); RBC,URINE 0-1 /HPF (0-1)
--- NOTE | 2024-01-06 14:53 | EKG ---
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
[2024-01-06 15:08] VITALS: BP 152/96; PULSE 100; RESP 18; TEMP 98.1
[2024-01-08] VITALS (12 sets, daily range): BP systolic 110–159; BP diastolic 70–98; PULSE 65–89; RESP 16–18; TEMP 97.3–98.2; O2SAT 99
[~2024-01-08] VITALS: Ht 170.2 cm; Wt 76.2 kg
[2024-01-08] MEDS: 0.9%NACL 1000ML 1,000 ML IV ONE (09:37)
[2024-01-08] MEDS: Solu-medROL 125MG VIAL IVP ONE (13:10)
[2024-01-08] MEDS ORDERED: LIDOCAINE HCL 400MG/20ML VIAL ONE (13:11)
[2024-01-08] MEDS ORDERED: IODIXANOL 320 MG/ML 100 ML VIAL ONE (13:11)
[2024-01-08] MEDS: DiphenhydrAMINE HCL 50 MG/ML VIAL IV ONE (13:11)
[2024-01-08] MEDS ORDERED: HEParin 10,000 UNIT/10ML (1,000 UNIT/ML) VIAL ONE (13:11)
[2024-01-08] MEDS ORDERED: NITROGLYCERIN 50MG VIAL ONE (13:11)
[2024-01-08] MEDS ORDERED: HEParin-NS 1,000 UNIT/500 ML 1,000 ML IV ONE (13:11)
[2024-01-08] MEDS ORDERED: FENTanyl CITRate PF 50 MCG/1 ML 2ML VIAL ONE (13:21)
[2024-01-08] MEDS ORDERED: MIDAZOLAM HCL 1 MG/ML 2ML VIAL ONE (13:21)
[2024-01-08] MEDS ORDERED: cloPIDOgrel 300MG TAB ONE (14:09)
[2024-01-08] MEDS ORDERED: HEParin-NS 1,000 UNIT/500 ML 500 ML IV ONE (14:49)
[2024-01-08] MEDS ORDERED: ASPIRIN 325MG EC TAB PO ONE (15:39)
[2024-01-08] MEDS ORDERED: ASPI-1005 PO (15:45)
[2024-01-08] MEDS ORDERED: CLOP75TA32 PO (15:45)
--- NOTE | 2024-01-08 16:08 | PRN ---
Procedure:Peripheral Angiogram Procedure Note Procedure Note: Peripheral Angiogram Date of Service: 01/08/2024 Referring Physician: Dr. Teddy Bethea Procedures Performed: Lower abdominal aortogram, peripheral angiogram with lower extremity arterial runoff, peripheral angiogram via 0.014 quick cross catheter, balloon angioplasty, balloon lithotripsy, balloon angioplasty of the right peroneal artery, right tibioperoneal artery, and right superficial femoral artery. Indications for Procedure: PAD, Jacqui category 3 symptoms affecting the bilateral lower extremities (R > L) PAD s/p successful treatment with balloon lithotripsy and balloon angioplasty of the left common iliac artery and left external iliac artery done on 11/10/2023 Heart transplant status, on immunosuppressive therapy Description of Procedure: [After informed consent was obtained the patient was prepped and draped in the usual sterile fashion a 6 Australian arterial sheath with a hemostatic valve was inserted into the left common femoral artery using a modified Salinger technique on the first pass front wall puncture. A 5 Australian Omni Flush catheter was then advanced over a soft angled Glidewire into the abdominal aorta and a lower abdominal aortogram with runoff was obtained. The findings are listed below. The Omni flush catheter was then advanced to the right common femoral artery and a right lower extremity arterial runoff was obtained. The findings are listed below.] Findings: Lower Abdominal aorta: patent with aneurysmal formation Right common iliac artery: Patent with aneurysmal formation Right external iliac artery: 70% stenosis in the distal segment of the artery, that extends into the proximal right common femoral artery Right internal iliac artery: patent Right common femoral artery: 70% stenosis in the proximal segment of the artery Right profunda artery: patent Right superficial femoral artery: Diffuse 70% stenosis in the mid and distal segments of the artery. Focal 90% stenosis in the distal segment of the artery Right popliteal artery: patent Right anterior tibial artery: patent Right tibioperoneal artery: 60% stenosis in the proximal segment of the artery Right peroneal artery: 100% stenosis (LOGISTICAL ENGINEER = 20mm) in the proximal segment of the artery. The artery reconstitutes distally. There is 100% stenosis in the distal segment of the artery Right posterior tibial artery: 100% stenosis (LOGISTICAL ENGINEER > 240mm) in the proximal segment of the artery. The artery does not reconstitute distally. Right pedal arch: Incomplete, with slow single-vessel runoff supplying the anterior and posterior segments of the pedal arch. Left common iliac artery: Patent with aneurysmal formation Left external iliac artery: Patent with aneurysmal formation Left internal iliac artery: patent Left common femoral artery: patent Left profunda artery: patent Left superficial femoral artery: Diffuse 60-70% stenosis in the proximal, mid, and distal segments of the artery Left popliteal artery: patent Left anterior tibial artery: patent Left peroneal artery: Not well visualized. Left posterior tibial artery: Not well visualized. Pedal arch: Not well visualized. Intervention: After reviewing the above-mentioned findings the tissue was made to intervene on the right superficial femoral artery, right tibioperoneal artery, and right peroneal artery. The soft angled glidewire was inserted into the Omni flush catheter and was advanced to the right popliteal artery. The Omni flush catheter was then removed and the short 6 Australian arterial sheath was exchanged for a 65 cm 6 Australian destination arterial sheath, which was then placed in the proximal right superficial femoral artery. We then administered heparin 75 units/kg, clopidogrel 300 mg x 1 dose and aspirin 325 mg x 1 dose. We then advanced a 0.014 quick cross catheter and 0.014 whisper guidewire and attempted to cross the LOGISTICAL ENGINEER in the right peroneal artery, but were unsuccessful. We then proceeded with the wire escalation technique (Miracle 6gm > Fielder XT) and were successful. We advanced the Fielder XT guidewire and 0.014 quick cross catheter into the distal right peroneal artery. We then removed the Fielder XT guidewire and injected contrast through the quick cross catheter, which revealed that we are in the true lumen of the right peroneal artery. We then inserted the 0.014 whisper guidewire into the quick cross catheter and advanced it into the distal right peroneal artery. We then removed the quick cross catheter and performed successful balloon angioplasty (2.0 x 20 mm), balloon lithotripsy (shockwave 3.0 x 40 mm), and balloon angioplasty (chocolate 3.0 x 40 mm) in the proximal right tibial peroneal artery, proximal right peroneal artery and distal right peroneal artery. The balloons were then removed and repeat angiography was performed, which revealed widely patent arteries without dissection or perforation. We then performed balloon lithotripsy (shockwave 6.0 by 60 mm) and balloon angioplasty (chocolate 6.0 x 120 mm) in the mid and distal segments of the right superficial femoral artery. The balloon were then removed and repeat angiography was performed, which revealed widely patent superficial femoral artery, without dissection, or perforation, and brisk blood flow distally. The 0.014 whisper guidewire and 65 cm 6 Australian destination arterial sheath were then removed and the arteriotomy site was closed using a 6 Australian Angio-Seal device. The patient tolerated the procedure well and without issue. Estimated Blood Loss: [20]mL Complications: [ None] Conclusion: 1. PAD, [place] category 3 symptoms (R > L), diffuse 70% stenosis and focal 90% stenosis in the mid and distal right superficial femoral artery status post successful treatment with balloon lithotripsy and balloon angioplasty, 60% stenosis in the right peroneal artery status post successful treatment with balloon angioplasty, balloon lithotripsy, and balloon angioplasty, and 100% stenosis in the proximal and distal segments of the right peroneal artery status post successful treatment with balloon angioplasty, balloon lithotripsy, and balloon angioplasty, resulting in widely patent arteries, without dissection, or perforation, and brisk two-vessel runoff supplying the anterior and posterior segments of the pedal arch. 2. PAD s/p successful treatment with balloon lithotripsy and balloon angioplasty of the left common iliac artery and left external iliac artery done on 11/10/2023 3. Residual PAD, 70% stenosis in the distal right external iliac artery 3. Diffuse 60-70% stenosis in the proximal, mid, and distal left superficial femoral artery 4. Heart transplant status, on immunosuppressive therapy Recommendations/Instructions: 1. Continue goal-directed medical therapy. 2. Start clopidogrel 75 mg daily. The patient will continue on aspirin 81 mg daily and Eliquis 5 mg BID. The patient will remain on triple therapy for 1 month. 3. Groin precautions 4. 4 hours of bedrest 5. Start NS at 100 mL/hour x3 hours 6. The patient will be admitted for overnight observation. Okay to DC in the a.m. of the left groin is soft, and free of bruising, bleeding, and/or hematoma formation. 7. No driving for the next 48 hours 8. No heavy lifting or strenuous exercise for the next 2 weeks 9. We will bring the patient back within the next 2-3 weeks to address the residual PAD in the right external iliac artery and left superficial femoral artery TEDDY BETHEA MD Jan 08, 2024 16:08
[2024-01-08] MEDS: 0.9%NACL 1000ML 1,000 ML IV SCH (16:23)
[2024-01-08] MEDS: CALCIUM CARB 500MG PO SCH (20:34)
[2024-01-08] MEDS: MYCOPHENOLATE MOFETIL 250 MG CAPSULE PO SCH (20:34)
[2024-01-08] MEDS: GABAPENTIN 300 MG CAPSULE PO SCH (20:34)
[2024-01-08] MEDS: MAGNESIUM OXIDE 400 MG TABLET PO SCH (20:34)
[2024-01-08] MEDS: APIXaban 5 MG TABLET PO SCH (20:34)
[2024-01-08] MEDS: tacrOLIMUS 1 MG CAPSULE PO SCH (20:34)
[2024-01-08] MEDS: PANTOPrazole 40 MG TAB DR PO SCH (20:34)
[2024-01-08] MEDS: carVEDIlol 25 MG TABLET PO SCH (20:35)
[2024-01-09 03:40] LABS: HEMATOCRIT 36.9 % (42-54); MEAN CORPUSCULAR HEMOGLOBIN 33.6 pg (27.0-33.0); MEAN CORPUSCULAR HGB CONC 34.4 g/dL (32.0-36.0); MEAN CORPUSCULAR VOLUME 97.6 fL (79-99); RED BLOOD CELL COUNT(AUTO) 3.78 MIL/uL (4.50-6.20); RED CELL DISTRIBUTION WIDTH 12.2 % (11.0-15.5); WHITE BLOOD COUNT (AUTO) 8.3 K/uL (4.8-10.8)
[2024-01-09 04:00] VITALS: BP 142/78; PULSE 88; RESP 18; TEMP 98.3
[2024-01-09 04:04] LABS: ALBUMIN 2.9 g/dL (3.5-5.0); BILIRUBIN,TOTAL 0.6 mg/dL (0.2-1.0); CREATININE 1.4 mg/dL (0.5-1.3); POTASSIUM 4.5 mmol/L (3.5-5.1)
[2024-01-09 07:50] VITALS: BP 130/88; PULSE 84; RESP 16; TEMP 98.2
[2024-01-09 08:00] VITALS: O2SAT 98
--- NOTE | 2024-01-09 09:09 | DS ---
Discharge Summary DIAGNOSE(S): -PAD, Starr category 3 symptoms affecting the bilateral lower extremities (R>L) HOSPITAL COURSE SUMMARY: The patient was admitted for overnight observation after undergoing a right lower extremity peripheral angiogram with intervention. He tolerated the procedure well and without issue. 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 Thomas Garcia. PROBLEM(S): -PAD, Starr category 3 symptoms (R > L) s/p successful treatment with balloon lithotripsy and balloon angioplasty in the mid and distal right SFA, s/p successful treatment with balloon angioplasty, balloon lithotripsy, and balloon angioplasty in the right proximal TP artery, s/p successful treatment with balloon angioplasty, balloon lithotripsy, and balloon angioplasty in the proximal and distal right peroneal artery done on 01/08/[address] Thomas Garcia -PAD s/p successful treatment with balloon lithotripsy and balloon angioplasty of the left common iliac artery and left external iliac artery done on 11/10/[address] Thomas Garcia -Residual PAD, 70% stenosis in the distal right external iliac artery and diffuse 60-70% stenosis in the proximal, mid, and distal left superficial femoral artery -Heart transplant status on immunosuppressive therapy -HTN -HLP -h/o DVT, on chronic anticoagulation DISCHARGE INSTRUCTIONS: 1. PAD, Starr category 3 symptoms (R > L) s/p successful treatment with balloon lithotripsy and balloon angioplasty in the mid and distal right SFA, s/p successful treatment with balloon angioplasty, balloon lithotripsy, and balloon angioplasty in the right proximal TP artery, s/p successful treatment with balloon angioplasty, balloon lithotripsy, and balloon angioplasty in the proximal and distal right peroneal artery done on 01/08/[address] Thomas Garcia -The patient will continue on triple therapy (Eliquis 5 mg BID, aspirin 81 mg daily, and clopidogrel 75 mg daily) for 1 month, then aspirin will be discontinued and he will remain on single antiplatelet therapy with clopidogrel 75 mg daily. In addition, he will continue on atorvastatin 80 mg QHS. -We will bring the patient back for a staged intervention of the right external iliac artery and left SFA in the upcoming weeks. -No driving x 48 hours. -No strenuous activity or heavy lifting x 2 weeks. -Follow up with Cardiology, Dr. Thomas Garcia, 1-2 weeks after discharge. This case was seen and discussed with my supervising physician, Dr. Thomas Garcia, and the above mentioned plan was formulated and agreed upon. -Discharge Note written by Rissa Jordan, MSN, BARISTA, AGACNP- Home Meds Active Scripts Clopidogrel Bisulfate (Clopidogrel) 75 Mg Tablet, 75 MG PO DAILY, #30 TAB 3 Refills Prov:THOMSA GARCIA MD 01/08/24 Aspirin (ASPIRIN 81MG CHEW TAB) 81 Mg Tab.chew, 81 MG PO DAILY, #30 TAB.CHEW Prov:THOMAS GARCIA MD 01/08/24 Apixaban (Eliquis) 5 Mg Tablet, 5 MG PO BID, #60 TAB Prov:BONY TOMLIN 03/24/22 Reported Medications Atorvastatin Calcium (Atorvastatin Calcium) 80 Mg Tablet, 80 MG PO DAILY, TAB 11/06/23 Mycophenolate Mofetil (Mycophenolate Mofetil) 500 Mg Tablet, 500 MG PO BID, TAB 11/06/23 Empagliflozin (Jardiance) 25 Mg Tablet, 12.5 MG PO DAILY, TAB 11/06/23 Omeprazole (Omeprazole) 20 Mg Tablet.dr, 20 MG PO BID, TAB 11/06/23 Loratadine (Loratadine) 10 Mg Tablet, 10 MG PO DAILY, TAB 11/06/23 Calcium Carbonate (Calcium) 500 Mg Calcium (1250 Mg) Tablet, 500 MG PO BID, TAB 11/06/23 Gabapentin (Gabapentin) 600 Mg Tablet, 600 MG PO HS, TAB 11/06/23 Tamsulosin HCl (Flomax) 0.4 Mg Cap.er.24h, 0.4 MG PO DAILY for FOR PROSTATE, CAPSULE. 06/16/22 Carvedilol (Carvedilol) 25 Mg Tablet, 25 MG PO BID, TAB 06/16/22 Magnesium Oxide (Magnesium) 400 Mg Magnesium Tablet, 400 MG PO BID, TAB 06/16/22 Tacrolimus (Tacrolimus) 1 Mg Capsule, 1 MG PO BID, CAP 06/16/22 Discontinued Reported Medications Cilostazol (Cilostazol) 100 Mg Tablet, 100 MG PO DAILY, TAB 11/06/23 New Medications: Aspirin (Aspirin 81MG Chew Tab) 81 Mg Tab.chew 81 MG PO DAILY, #30 TAB.CHEW Clopidogrel Bisulfate (Clopidogrel) 75 Mg Tablet 75 MG PO DAILY, #30 TAB 3 Refills Continued Medications: Apixaban (Eliquis) 5 Mg Tablet 5 MG PO BID, #60 TAB Atorvastatin Calcium (Atorvastatin Calcium) 80 Mg Tablet 80 MG PO DAILY, TAB Calcium Carbonate (Calcium) 500 Mg Calcium (1250 Mg) Tablet 500 MG PO BID, TAB Carvedilol (Carvedilol) 25 Mg Tablet 25 MG PO BID, TAB Empagliflozin (Jardiance) 25 Mg Tablet 12.5 MG PO DAILY, TAB Gabapentin (Gabapentin) 600 Mg Tablet 600 MG PO HS, TAB Loratadine (Loratadine) 10 Mg Tablet 10 MG PO DAILY, TAB Magnesium Oxide (Magnesium) 400 Mg Magnesium Tablet 400 MG PO BID, TAB Mycophenolate Mofetil (Mycophenolate Mofetil) 500 Mg Tablet 500 MG PO BID, TAB Omeprazole (Omeprazole) 20 Mg Tablet.dr 20 MG PO BID, TAB Tacrolimus (Tacrolimus) 1 Mg Capsule 1 MG PO BID, CAP Tamsulosin HCl (Flomax) 0.4 Mg Cap.er.24h 0.4 MG PO DAILY for FOR PROSTATE, CAPSULE. Time spent arranging discharge: 1-30 minutes RISSA JORDAN NP Jan 09, 2024 09:09
[2024-01-09] MEDS: ASPIRIN 81MG CHEW TAB PO SCH (10:11)
[2024-01-09 10:12] VITALS: BP 130/80
[2024-01-09] MEDS: tamSULOsin HCL 0.4 MG CAP.ER.24H PO SCH (10:12)
[2024-01-09] MEDS: EMPAGLIFLOZIN 25MG TABLET PO SCH (10:12)
[2024-01-09] MEDS: cloPIDOgrel 75MG TAB PO SCH (10:13)
[2024-01-09] MEDS: atorVAStatin 40 MG TABLET PO SCH (10:13)
[2024-01-09] MEDS: LORATAdine 10 mg 10 MG TABLET PO SCH (10:13)
== END 2024-01-09 11:25 | disposition home or self-care (01) ==
LOC: DAH 08:51 → DAHIP 08:52 → 2DH 16:10
PROVIDERS: ADMIT Internal Medicine Cardiovascular Disease; ATTEND Internal Medicine Cardiovascular Disease
DX: I73.9 Peripheral vascular disease, unspecified (principal); I83.891 Varicose veins of right lower extremity with other complications; I82.401 Acute embolism and thrombosis of unspecified deep veins of right lower extremity; I70.8 Atherosclerosis of other arteries; D84.821 Immunodeficiency due to drugs; I12.9 Hypertensive chronic kidney disease with stage 1 through stage 4 chronic kidney disease, or unspecified chronic kidney disease; E11.22 Type 2 diabetes mellitus with diabetic chronic kidney disease; N18.30 Chronic kidney disease, stage 3 unspecified; E78.5 Hyperlipidemia, unspecified; I25.10 Atherosclerotic heart disease of native coronary artery without angina pectoris; I71.40 Abdominal aortic aneurysm, without rupture, unspecified; E78.01 Familial hypercholesterolemia; Z79.01 Long term (current) use of anticoagulants; Z86.718 Personal history of other venous thrombosis and embolism; Z94.1 Heart transplant status; Z79.899 Other long term (current) drug therapy
CPT/HCPCS: 80048; 85610; 85730; 81001; 36415 ×3; 93005; 75716; 96374; 96375; 83880; 85347; 82948 ×2; 80053; 85027; C1887; C1725 ×5; C1894 ×2; C1769 ×4; C1760; C1893; C9764; C9772; G0378 ×19; J1200; J3010; J3490 ×2; J7030; J2919; J1644 ×3; J2250; J7507 ×2; J7517 ×2; Q9967; A4215; A4223 ×3; A4222; A4221; A4663; A4216; A4606; 99156; 99157

== ENCOUNTER → 2024-05-31 | Outpatient (CLI) | payer OTHER ==
[~2024-05-31] MED LIST changes: +ASPI-1005 PO; -CILO100T3 PO; +CLOP75TA32 PO; +SACU1TAB7 PO; +TACR0.5C7 PO
[2024-05-31 16:18] LABS: BASOPHILS # (AUTO) 0.02 K/uL (0.00-0.20); BASOPHILS % (AUTO) 0.2 % (0.0-5.0); EOSINOPHILS # (AUTO) 0.26 K/uL (0.00-0.70); EOSINOPHILS % (AUTO) 3.2 % (0.0-8.0); HEMATOCRIT 37.5 % (42-54); IMMATURE GRANULOCYTE ABSOLUTE 0.03 K/uL (0-1); LYMPHOCYTES # (AUTO) 0.8 K/uL (1.0-4.8); LYMPHOCYTES % (AUTO) 10.2 % (21.0-51.0); MEAN CORPUSCULAR HEMOGLOBIN 31.8 pg (27.0-33.0); MEAN CORPUSCULAR HGB CONC 32.3 g/dL (32.0-36.0); MEAN CORPUSCULAR VOLUME 98.7 fL (79-99); MONOCYTES # (AUTO) 0.7 K/uL (0.1-1.0); MONOCYTES % (AUTO) 8.9 % (3.0-13.0); NEUTROPHILS # (AUTO) 6.3 K/uL (1.8-7.7); NEUTROPHILS % (AUTO) 77.1 % (40.0-77.0); PLATELET COUNT (AUTO) 152 K/uL (130-400); RED CELL DISTRIBUTION WIDTH 13.7 % (11.0-15.5); WHITE BLOOD COUNT (AUTO) 8.2 K/uL (4.8-10.8)
[2024-05-31 16:41] LABS: ALBUMIN 2.9 g/dL (3.5-5.0); BILIRUBIN,TOTAL 0.4 mg/dL (0.2-1.0); CREATININE 1.1 mg/dL (0.5-1.3); MAGNESIUM 1.4 mg/dL (1.80-2.40); POTASSIUM 3.8 mmol/L (3.5-5.1); TOTAL PROTEIN, SERUM 6.4 g/dL (6.0-8.3)
== END | disposition home or self-care (01) ==
LOC: LAB 14:07
PROVIDERS: ATTEND Internal Medicine Cardiovascular Disease
DX: I73.9 Peripheral vascular disease, unspecified (principal); E78.2 Mixed hyperlipidemia; I83.893 Varicose veins of bilateral lower extremities with other complications; I82.401 Acute embolism and thrombosis of unspecified deep veins of right lower extremity; E78.01 Familial hypercholesterolemia; I63.322 Cerebral infarction due to thrombosis of left anterior cerebral artery; Z79.899 Other long term (current) drug therapy; Z94.1 Heart transplant status
CPT/HCPCS: 36415; 80053; 83735; 85025

== ENCOUNTER 2025-01-01 17:49 | Emergency (ER) | payer OTHER ==
[~2025-01-01] VITALS: Ht 170.2 cm; Wt 72.6 kg
[~2025-01-01 17:49] MED LIST changes: -TAMS-1 PO; +TAMS-55 PO
--- NOTE | 2025-01-01 18:10 | ERN ---
ED Note History of Present Illness Stated Complaint: BOIL TO GROIN Chief Complaint: Abscess Time Seen by MD: 17:50 Time Seen by Midlevel: 17:50 Dictation: The patient is a 74-year-old male with a history of diabetes, hypertension, heart transplant who presents to the emergency department with complaints of abscess to suprapubic area onset three four days ago. Patient denies any fevers denies any current use of antibiotics. Allergies: Coded Allergies: Iodinated Contrast Media (Unverified Allergy, Unknown, 03/24/22) oxycodone (Unverified Allergy, Unknown, 06/18/22) Home Meds Active Scripts Cephalexin Monohydrate (Keflex) 500 Mg Cap, 500 MG PO QID for 7 Days, #28 CAP Prov:JR REDDY MD 01/01/25 Clopidogrel Bisulfate (Clopidogrel) 75 Mg Tablet, 75 MG PO DAILY, #30 TAB 3 Refills Prov:TEDDY GARCIA MD 01/08/24 Aspirin (ASPIRIN 81MG CHEW TAB) 81 Mg Tab.chew, 81 MG PO DAILY, #30 TAB.CHEW Prov:TEDDY GARCIA MD 01/08/24 Apixaban (Eliquis) 5 Mg Tablet, 5 MG PO BID, #60 TAB Prov:BONY TOMLIN 03/24/22 Reported Medications Sacubitril/Valsartan (Entresto 49 mg-51 mg Tablet) 49 Mg-51 Mg Tablet, 1 TAB PO BID for 30 Days, #60 TAB 0 Refills 04/19/24 Tacrolimus (Tacrolimus) 0.5 Mg Capsule, 0.5 MG PO HS, CAP 04/19/24 Atorvastatin Calcium (Atorvastatin Calcium) 80 Mg Tablet, 80 MG PO DAILY, TAB 11/06/23 Mycophenolate Mofetil (Mycophenolate Mofetil) 500 Mg Tablet, 500 MG PO BID, TAB 11/06/23 Empagliflozin (Jardiance) 25 Mg Tablet, 12.5 MG PO DAILY, TAB 11/06/23 Omeprazole (Omeprazole) 20 Mg Tablet.dr, 20 MG PO BID, TAB 11/06/23 Loratadine (Loratadine) 10 Mg Tablet, 10 MG PO DAILY, TAB 11/06/23 Calcium Carbonate (Calcium) 500 Mg Calcium (1250 Mg) Tablet, 500 MG PO BID, TAB 11/06/23 Gabapentin (Gabapentin) 600 Mg Tablet, 600 MG PO HS, TAB 11/06/23 Tamsulosin HCl (Flomax) 0.4 Mg Cap.er.24h, 0.4 MG PO DAILY for FOR PROSTATE, CAPSULE. 06/16/22 Carvedilol (Carvedilol) 25 Mg Tablet, 25 MG PO BID, TAB 06/16/22 Magnesium Oxide (Magnesium) 400 Mg Magnesium Tablet, 400 MG PO BID, TAB 06/16/22 Tacrolimus (Tacrolimus) 1 Mg Capsule, 1 MG PO BID, CAP 06/16/22 Past Medical History Past Medical History: [place] Additional Past Medical Hx: ABDOMINAL AORTIC ANEURYSM, [place] Surgical History: Cholecystectomy, CABG Surgical History Other: CARDIAC STENTS, HERNIA REPAIR Social History: Negative, Lives with family RN Note Reviewed/Agreed w/PFSH: Yes Review of System Dictation Constitutional: Negative for fever,chills, and weight loss Eyes: Negative for injury, pain,redness, and discharge ENT: Negative for injury,pain or swelling Cardiovascular: Negative for chest pain, palpitations, and edema Respiratory: Negative for shortness of breath, cough, and wheezing, Abdomen/GI: Negative for abdominal pain, nausea, vomiting, diarrhea, and constipation Back: Negative for injury and pain : Negative for injury, bleeding and discharge MS/Extremity: Negative for injury and deformity Skin: Negative for rash, and discoloration positive for abscess Neuro: Negative for headache, weakness, numbness, tingling, and seizure Psych: Negative for suicide ideation, homicidal ideation, and hallucinations Initial Vital Sign VS Vital Signs Date Time Temp Pulse Resp B/P (MAP) Pulse Ox O2 Delivery O2 Flow Rate FiO2 01/01/25 17:52 98.2 85 19 124/88 99 Room Air 0 01/01/25 18:10 21 Physical Exam Dictation Vital Signs reviewed General Appearance: Alert, oriented x 3, no acute distress, well developed, nourished. Head and Face: non-traumatic. Eyes: PERRL, pink conjunctivas, eyelid no trauma, anterior chamber with arcus senilis. Ears: Pinnas intact and no signs of trauma or erythema ear canals clear and no discharge TM no erythema Nose: No discharge, no bleeding. Oropharynx: Mouth normal, tongue pink. pharynx clear,no erythema, tonsils no exudates, no abscesses noted, mucous membrane moist Neck: Supple, non-tender, no thyromegaly, no masses, no JVD, no bruits Breast:Deferred Chest:No tenderness, no crepitus, no paradoxical movement, no retractions Lungs:Clear, well-ventilated, symmetric, no rales, no wheezing, no rhonchi, no stridor, good breath sounds bilaterally Heart: Regular rate, regular rhythm, no murmur, no gallops Vascular: no peripheral edema, Abdomen: Soft, positive bowel sounds, nondistended, no guarding, nontender, no rebound, no masses no hepatomegaly, no splenomegaly, no Molina's s ign, no hernias. Rectal: Deferred Genital: Deferred Neurological: Normal speech, motor function intact, sensory function intact Musculoskeletal: Neck nontender, full range of motion, back nontender, full range of motion, Extremities: nontender, full range of motion Skin: Color pink, dry, no turgor, no rash, no lacerations, no abrasions, no contusions, erythema to suprapubic area, enduration. Lymphatic: Deferred Results (Laboratory/Radiology) Laboratory/Radiology Laboratory Tests Test 01/01/25 18:18 White Blood Count 9.4 K/uL (4.8-10.8) Red Blood Count 3.90 MIL/uL (4.50-6.20) L Hemoglobin 12.0 g/dL (14.0-18.0) L Hematocrit 35.1 % (42-54) L Mean Corpuscular Volume 90.0 fL (79-99) Mean Corpuscular Hemoglobin 30.8 pg (27.0-33.0) Mean Corpuscular Hemoglobin Concent 34.2 g/dL (32.0-36.0) Red Cell Distribution Width 13.0 % (11.0-15.5) Platelet Count 146 K/uL (130-400) Mean Platelet Volume 10.8 fL (7.5-10.5) H Immature Granulocyte % (Auto) 0.4 % (0-1) Neutrophils (%) (Auto) 79.9 % (40.0-77.0) H Lymphocytes (%) (Auto) 5.2 % (21.0-51.0) L Monocytes (%) (Auto) 11.2 % (3.0-13.0) Eosinophils (%) (Auto) 3.2 % (0.0-8.0) Basophils (%) (Auto) 0.1 % (0.0-5.0) Neutrophils # (Auto) 7.5 K/uL (1.8-7.7) Lymphocytes # (Auto) 0.5 K/uL (1.0-4.8) L Monocytes # (Auto) 1.1 K/uL (0.1-1.0) H Eosinophils # (Auto) 0.30 K/uL (0.00-0.70) Basophils # (Auto) 0.01 K/uL (0.00-0.20) Absolute Immature Granulocyte (auto 0.04 K/uL (0-1) Nucleated Red Blood Cells 0.0 % (0.0-0.19) White Cell Morphology Comment See comments Sodium Level 140 mmol/L (136-145) Potassium Level 4.7 mmol/L (3.5-5.1) Chloride Level 104 mmol/L (101-111) Carbon Dioxide Level 26 mmol/L (21-32) Blood Urea Nitrogen 25 mg/dL (7-18) H Creatinine 1.3 mg/dL (0.5-1.3) Glomerular Filtration Rate Calc 58 mL/min (>90) Random Glucose 109 mg/dL (70-105) H Total Calcium 8.7 mg/dL (8.5-10.1) Labs Reviewed?: Yes ED Course ED Course Orders Procedure Category Date Status Time Cbc With Differential LAB 01/01/25 Complete 18:05 Basic Metabolic Panel LAB 01/01/25 Complete 18:05 Us Soft Tissue US 01/01/25 Resulted Perineum 18:05 Laceration Tray Set CPOE 01/01/25 Transmitted Up (Er) 20:23 Lidocaine 1%-Epi PHA 01/01/25 Complete 1:100,000 (Lidocaine 20:30 Lidocaine 1%-Epi PHA 01/01/25 Complete 1:100,000 (Lidocaine 20:34 Cefazolin Sodium 1 Gm PHA 01/01/25 Complete Vial (Ancef 1 Gm V 21:03 Current Medications Medications (Trade) Dose Ordered Sig/Nikhil Route PRN Reason Start Time Stop Time Status Last Admin Dose Admin Cefazolin Sodium (ANCEF 1 gm vial) 1 gm ONCE STAT IVP 01/01/25 21:03 01/01/25 21:07 DC Lidocaine/ Epinephrine (Lidocaine 1%-Epi 1:100,000) 20 ml ONCE IJ 01/01/25 20:30 01/01/25 20:24 DC Lidocaine/ Epinephrine (Lidocaine 1%-Epi 1:100,000) 20 ml STK-MED ONCE .ROUTE 01/01/25 20:34 01/01/25 20:34 DC Vital Signs Date Time Temp Pulse Resp B/P (MAP) Pulse Ox O2 Delivery O2 Flow Rate FiO2 01/01/25 21:29 99.0 72 18 161/85 97 Room Air* 0 21 01/01/25 20:42 99.0 84 18 174/95 97 Room Air* 0 21 01/01/25 18:10 99.0 80 19 165/88 96 Room Air* 0 21 01/01/25 17:52 98.2 85 19 124/88 99 Room Air 0 Medical Decision Making MDM The patient is a 74-year-old male with a history of diabetes, hypertension, heart transplant who presents to the emergency department with complaints of abscess to suprapubic area onset three four days ago. Patient denies any fevers denies any current use of antibiotics. Differential diagnosis: Abscess, cellulitis, sepsis, electrolyte imbalance Need for hospitalization: Patient does not meet criteria for hospitalization. There are no social concerns with this patient. Procedure Blade Size: I & D Procedure: no betadine prep Progress Has a an abscess suprapubic with surrounding cellulitis. The skin around the small drainage point was numbed with a proximally 5 cc of lidocaine. The drainage point was opened up with a cruciform incision using a pair scissors. The abscess was drained and then packed with Nu Gauze. Critical Care Note Comment(s) I wrote to give the patient a g of IV Ancef. However the patient has poor fara ous access and is deferring the dose of antibiotics. That is fine he should be OK with just the oral antibiotics. DX & DISP Disposition: Discharge Departure Impression: Primary Impression: Suprapubic abscess Condition: Stable Scripts Cephalexin Monohydrate (Keflex) 500 Mg Cap 500 MG PO QID for 7 Days, #28 CAP Prov: JR REDDY MD 01/01/25 Additional Instructions: Abscess just above her pubic bone on your anterior abdominal wall. The wound is packed with Nu Gauze. Please change it daily. You can take the bandage out when you are taking a shower and then replace it when you are done with your shower. Please no soaking baths swimming saunas or soaking the bandage in water for long periods of time. I am giving you a g of antibiotics. I will give you a prescription for antibiotics. This should heal in a week or two please follow-up with her primary care physician or return to the emergency room if it does not get better in the next week. Referrals: BIJAL CASTRO MD (PCP) PRINCE KNOTT Jan 01, 2025 18:10 JR REDDY MD Jan 01, 2025 21:13
[2025-01-01 18:29] LABS: IMMATURE GRANULOCYTE ABSOLUTE 0.04 K/uL (0-1); NUCLEATED RED BLOOD CELLS 0.0 % (0.0-0.19); PLATELET COUNT (AUTO) 146 K/uL (130-400); RED BLOOD CELL COUNT(AUTO) 3.90 MIL/uL (4.50-6.20); RED CELL DISTRIBUTION WIDTH 13.0 % (11.0-15.5); WHITE BLOOD COUNT (AUTO) 9.4 K/uL (4.8-10.8)
[2025-01-01 18:35] LABS: CREATININE 1.3 mg/dL (0.5-1.3); GLOMERULAR FILTR. RATE CALC 58.0 mL/min (>90); GLUCOSE,RANDOM 109.0 mg/dL (70-105); SODIUM SERUM 140.0 mmol/L (136-145); UREA NITROGEN, BLOOD 25.0 mg/dL (7-18)
--- NOTE | 2025-01-01 19:47 | HMCIMG ---
EXAM: US examination of soft tissue region of perineum. CLINICAL HISTORY: For evaluation of abscess TECHNIQUE: Real-time ultrasound examination performed with image documentation. COMPARISON: None provided. FINDINGS: Diffuse subcutaneous edema with increased echogenicity of the subcutaneous plane at the level of the perineum with ill-defined hypodense area measuring 0.9 x 0.8 x 0.5 cm in craniocaudal, sanjiv-posterior and transverse dimensions at the level of the pubic bone. IMPRESSION: Imaging features in favor of cellulitis at the level of the perineum with evidence of evolving abscess in the subcutaneous plane, at the level of the pubic bone. Recommend contrast-enhanced CT imaging of the lower abdomen/pelvis for further evaluation. /Amelia
[2025-01-01] MEDS ORDERED: LIDOCAINE 1%-EPI 1:100,000 20 ML VIAL IJ SCH (20:30)
[2025-01-01] MEDS: LIDOCAINE 1%-EPI 1:100,000 20 ML VIAL ONE (21:05)
[2025-01-01] MEDS ORDERED: CEPH500B PO (21:12)
[2025-01-01 21:29] VITALS: BP 161/85; PULSE 72; RESP 18; TEMP 98.9; O2SAT 97
== END 2025-01-01 21:33 | disposition home or self-care (01) ==
LOC: EDH 17:49
DX: L02.214 Cutaneous abscess of groin (principal); E11.9 Type 2 diabetes mellitus without complications; I10 Essential (primary) hypertension; Z94.1 Heart transplant status; Z91.041 Radiographic dye allergy status; Z88.5 Allergy status to narcotic agent; Z86.79 Personal history of other diseases of the circulatory system; Z79.84 Long term (current) use of oral hypoglycemic drugs; Z79.82 Long term (current) use of aspirin; Z79.621 Long term (current) use of calcineurin inhibitor; Z79.624 Long term (current) use of inhibitors of nucleotide synthesis; Z79.02 Long term (current) use of antithrombotics/antiplatelets; Z79.01 Long term (current) use of anticoagulants; Z79.899 Other long term (current) drug therapy; Z90.49 Acquired absence of other specified parts of digestive tract; Z95.5 Presence of coronary angioplasty implant and graft; Z98.890 Other specified postprocedural states
CPT/HCPCS: 99284; 10060; 76857; 80048; 85025; 36415; J0690; J3490